=== PATIENT | female | born 1955 | race Two or more races ===

== ENCOUNTER 2020-12-15 12:12 | Emergency (ER) | payer MEDICARE, OTHER ==
[~2020-12-15] VITALS: Ht 157.5 cm; Wt 73.0 kg
--- NOTE | 2020-12-15 13:47 | NUR ---
PATIENT WALKED BACK FROM TRIAGE WITH CHIEF C/O BACK PAIN 3-4 DAYS. PATIENT REPORT PAIN IS IN THE UPPER AND MID BACK, WRAPS AROUND FRONT OF LEFT CHEST. PATIENT REPORTS SOB. NADN, VSS, CALL LIGHT WITHIN REACH.
--- NOTE | 2020-12-15 14:46 | NUR ---
ERMD AT BEDSIDE FOR EVALUATION.
--- NOTE | 2020-12-15 14:59 | NUR ---
PATIENT RESTING IN [place], ON PHONE, DELMYN, ROSITAS, CALL LIGHT WITHIN REACH. AWAITING MD ORDERS.
[2020-12-15] MEDS ORDERED: ASPIRIN 81 MG TABLET CHEW ONE ×2 (15:25→15:30)
[2020-12-15] MEDS ORDERED: KETOROLAC 30 MG/1 ML ONE (15:25)
[2020-12-15] MEDS ORDERED: KETOROLAC 30 MG/1 ML IM ONE (15:30)
[2020-12-15] MEDS ORDERED: ASPIRIN 81 MG TABLET CHEW PO ONE (15:30)
--- NOTE | 2020-12-15 15:34 | NUR ---
PATIENT MEDICATED PER [facility]. IMAGING AT BEDSIDE.
[2020-12-15 15:53] LABS: ALANINE AMINOTRANSFERASE 74 U/L (12-78); ALBUMIN 3.8 g/dL (3.4-5.0); ANION GAP 8 mmol/L (5-15); CALCIUM 8.7 mg/dL (8.5-10.1); CHLORIDE 111 mmol/L (98-107); CREATININE 0.74 mg/dL (0.55-1.02)
[2020-12-15 15:54] LABS: BASOPHILS % (AUTO) 1 % (0-1); EOSINOPHILS % (AUTO) 2 % (1-7); LYMPHOCYTES % (AUTO) 35 % (22-44); MEAN CORPUSCULAR HEMOGLOBIN 31.5 pg (27.0-34.8); MEAN CORPUSCULAR HGB CONC 33.3 g/dL (32.4-35.8); MEAN PLATELET VOLUME 8.8 fL (7.4-10.4); MONOCYTES % (AUTO) 9 % (2-9); NEUTROPHILS % (AUTO) 54 % (42-75); PLATELET COUNT 256 x10^3/uL (130-400)
[2020-12-15 15:56] LABS: MD NO
[2020-12-15 15:57] LABS: ALKALINE PHOSPHATASE 100 U/L (45-117); BILIRUBIN,TOTAL 0.2 mg/dL (0.2-1.0); TOTAL PROTEIN 7.5 g/dL (6.4-8.2); TROPONIN I < 0.015 ng/mL (0.000-0.045)
[2020-12-15 16:56] VITALS: BP 160/81
--- NOTE | 2020-12-15 17:00 | NUR ---
Patient given discharge instructions and prescription and they have confirmed that they understand the instructions. Patient stable and ambulatory with steady gait from ED to private vehicle.
== END 2020-12-15 17:01 | disposition home or self-care (01) ==
LOC: ED 16:55
DX: S29.012A Strain of muscle and tendon of back wall of thorax, initial encounter (principal); R07.89 Other chest pain; R94.31 Abnormal electrocardiogram [ECG] [EKG]; F17.200 Nicotine dependence, unspecified, uncomplicated; Z90.710 Acquired absence of both cervix and uterus; X58.XXXA Exposure to other specified factors, initial encounter; Y93.89 Activity, other specified; Y92.89 Other specified places as the place of occurrence of the external cause; Y99.8 Other external cause status
CPT/HCPCS: 36415; 71045; 80053; 84484; 85025; 93005; 96372; 99285; J1885